=== PATIENT | female | born 2000 | race Asian ===

== ENCOUNTER 2022-11-05 20:15 | Emergency (ER) | payer BC, OTHER ==
[~2022-11-05] VITALS: Ht 160 cm; Wt 49.9 kg
[2022-11-05 20:41] VITALS: BP 131/73
--- NOTE | 2022-11-05 20:44 | NUR ---
TO LOBBY A/W BED AMBULATORY
[2022-11-05] MEDS ORDERED: AZIT250T4 PO (21:04)
[2022-11-05] MEDS ORDERED: PRED20TA5 PO (21:04)
--- NOTE | 2022-11-05 21:58 | NUR ---
Patient discharged with v/s stable. Written and verbal after care instructions given and explained. Patient alert, oriented and verbalized understanding of instructions. Ambulatory with steady gait. All questions addressed prior to discharge. ID band removed. Patient advised to follow up with PMD. Rx of AZITHROMYCIN AND PREDNISONE given. Patient educated on indication of medication including possible reaction and side effects. Opportunity to ask questions provided and answered.
== END 2022-11-05 21:58 | disposition home or self-care (01) ==
LOC: MED 20:15
DX: J04.0 Acute laryngitis (principal); Z20.822 Contact with and (suspected) exposure to COVID-19; Z90.49 Acquired absence of other specified parts of digestive tract; Z79.899 Other long term (current) drug therapy
CPT/HCPCS: 99283